=== PATIENT | male | born 1955 | race Caucasian/White ===

== ENCOUNTER 2024-01-31 16:15 | Emergency (ER) | payer BC ==
[~2024-01-31] VITALS: Ht 170.2 cm; Wt 72.6 kg
[2024-01-31] MEDS ORDERED: SYMBICORT (16:47)
[2024-01-31] MEDS ORDERED: MONT10TA22 PO (16:47)
[2024-01-31 19:04] VITALS: BP 128/95; TEMP 98; O2SAT 96
== END 2024-01-31 19:06 | disposition home or self-care (01) ==
LOC: ER 16:21
DX: S16.1XXA Strain of muscle, fascia and tendon at neck level, initial encounter (principal); S09.8XXA Other specified injuries of head, initial encounter; J45.909 Unspecified asthma, uncomplicated; Z79.899 Other long term (current) drug therapy; W01.0XXA Fall on same level from slipping, tripping and stumbling without subsequent striking against object, initial encounter; Y93.89 Activity, other specified; Y92.89 Other specified places as the place of occurrence of the external cause; Y99.8 Other external cause status
CPT/HCPCS: 70450; 72125; A4606; A4663